=== PATIENT | female | born 1995 | race Caucasian/White ===

== ENCOUNTER 2016-09-14 11:50 | Emergency (ER) | payer BC ==
[~2016-09-14] VITALS: Ht 167.6 cm; Wt 61.3 kg
[~2016-09-14 11:50] MED LIST: IBUP800T23 PO; METH750T2 PO; SERO300T2 PO; VENL75 PO
[2016-09-14 12:04] VITALS: BP 113/69; PULSE 76; RESP 17; TEMP 98.6; O2SAT 98
[2016-09-14 13:07] VITALS: BP 116/68; PULSE 76; RESP 16; O2SAT 99
[2016-09-14] MEDS ORDERED: SERO300T PO (13:10)
[2016-09-14] MEDS ORDERED: PYRI200T4 PO (13:10)
[2016-09-14] MEDS ORDERED: MACR100C2 PO (13:10)
[2016-09-14] MEDS ORDERED: SODIUM CHLOR 0.9% 1000 ML INJ 1,000 ML IV ONE ×2 (13:13→13:15)
[2016-09-14] MEDS ORDERED: SODIUM CHLORIDE 0.9% FLUSH 5 ML FLUSH IVF PRN (13:15)
[2016-09-14] MEDS ORDERED: HYDROmorphone HCL PF 1 MG/ML VIAL IVS ONE (13:15)
[2016-09-14] MEDS ORDERED: ONDANSETRON HCL 4 MG/2 ML VIAL IVP ONE (13:15)
--- NOTE | 2016-09-14 13:21 | PD ---
HPI . Dark urine Chief Complaint: Complaint Time Seen by Provider: 13:09 Travel History International Travel<30 days: No Contact w/Intl Traveler<30days: No Traveled to known affect area: No History of Present Illness HPI Patient presents complaining with dark urine for about 3 days. She was seen at an urgent care center for same and diagnosed with UTI. She was placed on Macrobid and Pyridium. She states that she has been taking this as directed but is getting worse rather than better. She denies dysuria, frequency or urgency. She developed flank pain yesterday. She is nauseous but has had no vomiting. She reports no fever. She does report some suprapubic pain. She denies any previous similar history. [facility] Past Medical History Asthma: Yes Anxiety: Yes Depression: Yes Diminished Hearing: No Influenza Vaccination: No ?: Not LMP: 08/29/16 Past Surgical History Other Surgery: Yes (SINUS) Social History Alcohol Use: No (DENIES) Tobacco Use: Yes (09/10 PPD) Substance Use: Yes (DENIES USE SINCE 2014; HX OF HEROIN AND ALCOHOL ABUSE) Allergies-Medications (Allergen,Severity, Reaction): Coded Allergies: Penicillin (Unverified Allergy, Severe, HIVES, THROAT SWELLING, 09/14/16) Bactrim (Unverified Adverse Reaction, Unknown, N/V, 09/14/16) Reported Meds & Prescriptions Reported Meds & Active Scripts Active Flomax (Tamsulosin HCl) 0.4 Mg Cap 0.4 Mg PO HS Ibuprofen 800 Mg Tab 800 Mg PO Q8H PRN Reported Seroquel (Quetiapine Fumarate) 300 Mg Tab 300 Mg PO HS Pyridium (Phenazopyridine HCl) 200 Mg Tab 200 Mg PO Q8H PRN Macrobid (Nitrofurantoin Monoh/Nitrofur Macro) 100 Mg Cap 100 Mg PO BID Review of Systems Except as stated in HPI: all other systems reviewed are Neg General / Constitutional: No: Fever, Chills HENT: Positive: Headaches Gastrointestinal: Positive: Nausea, Abdominal Pain, No: Vomiting, Diarrhea Genitourinary: Positive: Flank Pain, Other (black urine), No: Urgency, Frequency, Dysuria Musculoskeletal: No: Myalgias, Arthralgias Physical Exam Narrative GENERAL: Healthy-appearing young female in no acute distress. SKIN: Warm and dry. HEAD: Atraumatic. Normocephalic. EYES: Pupils equal and round. ENT: No nasal bleeding or discharge. Mucous membranes pink and moist. NECK: Trachea midline. CARDIOVASCULAR: Regular rate and rhythm. Heart sounds are normal. RESPIRATORY: No accessory muscle use. Lungs are clear with full air movement throughout. GASTROINTESTINAL: Abdomen soft. Mild suprapubic tenderness. Nondistended. Right CVA tenderness. MUSCULOSKELETAL: No obvious deformities. No edema. NEUROLOGICAL: Awake and alert. No obvious cranial nerve deficits. Motor grossly within normal limits. Normal speech. PSYCHIATRIC: Appropriate mood and affect; insight and judgment normal. Data Data Last Documented VS Vital Signs Date Time Temp Pulse Resp B/P Pulse Ox O2 Delivery O2 Flow Rate FiO2 09/14/16 15:42 65 16 104/56 99 Room Air 09/14/16 12:04 98.6 Orders Urinalysis - C+S If Indicated (09/14/16 12:03) Complete Blood Count With Diff (09/14/16 13:13) Comprehensive Metabolic Panel (09/14/16 13:13) Iv Access Insert/Monitor (09/14/16 13:13) Sodium Chloride 0.9% Flush (Ns Flush) (09/14/16 13:15) Sodium Chlor 0.9% 1000 Ml Inj (Ns 1000 M (09/14/16 13:13) Ondansetron Inj (Zofran Inj) (09/14/16 13:15) Hydromorphone Pf Inj (Dilaudid Pf Inj) (09/14/16 13:15) Ed Urine Pregnancytest Poc (09/14/16 13:13) Sodium Chlor 0.9% 1000 Ml Inj (Ns 1000 M (09/14/16 13:15) Ct Abd/Pel W/O Iv Contrast (09/14/16 13:13) Ketorolac Inj (Toradol Inj) (09/14/16 14:15) Urine Culture (09/14/16 12:05) Labs Laboratory Tests Test 09/14/16 09/14/16 09/14/16 12:05 13:35 15:04 Urine Collection Type CLEAN CATCH Urine Color ORANGE Urine Turbidity CLEAR Urine pH 6.0 Urine Specific [place] 1.021 Urine Protein TRACE mg/dL Urine Glucose (UA) 100 mg/dL Urine Ketones NEG mg/dL Urine Occult Blood TRACE Urine Nitrite POS Urine Bilirubin NEG Urine Leukocyte Esterase NEG Urine RBC 20-24 /hpf Urine WBC 0-2 /hpf Urine Squamous Epithelial 0-5 /hpf Cells Microscopic Urinalysis Comment CULTURE INDICATED Urine Collection Time 12:05 White Blood Count 5.0 TH/MM3 Red Blood Count 4.39 MIL/MM3 Hemoglobin 12.6 GM/DL Hematocrit 37.8 % Mean Corpuscular Volume 86.2 FL Mean Corpuscular Hemoglobin 28.7 PG Mean Corpuscular Hemoglobin 33.3 % Concent Red Cell Distribution Width 12.7 % Platelet Count 205 TH/MM3 Mean Platelet Volume 9.1 FL Neutrophils (%) (Auto) 53.3 % Lymphocytes (%) (Auto) 33.1 % Monocytes (%) (Auto) 7.9 % Eosinophils (%) (Auto) 2.3 % Basophils (%) (Auto) 3.4 % Neutrophils # (Auto) 2.7 TH/MM3 Lymphocytes # (Auto) 1.6 TH/MM3 Monocytes # (Auto) 0.4 TH/MM3 Eosinophils # (Auto) 0.1 TH/MM3 Basophils # (Auto) 0.2 TH/MM3 CBC Comment DIFF FINAL Differential Comment Sodium Level 145 MEQ/L Potassium Level 3.6 MEQ/L Chloride Level 112 MEQ/L Carbon Dioxide Level 27.1 MEQ/L Anion Gap 6 MEQ/L Blood Urea Nitrogen 14 MG/DL Creatinine 0.88 MG/DL Estimat Glomerular Filtration 80 ML/MIN Rate Random Glucose 70 MG/DL Calcium Level 8.2 MG/DL Total Bilirubin 0.8 MG/DL Aspartate Amino Transf 22 U/L (AST/SGOT) Alanine Aminotransferase 28 U/L (ALT/SGPT) Alkaline Phosphatase 45 U/L Total Protein 6.7 GM/DL Albumin 3.9 GM/DL [facility] Medical Decision Making Medical Screen Exam Complete: Yes Emergency Medical Condition: Yes Differential Diagnosis Differential diagnosis of flank pain includes but is not limited to kidney stone , pyelonephritis, musculoskeletal pain, PE. We also have to consider something such as liver failure. Narrative Course Patient presents with dark urine which started first followed by flank pain and nausea. She has shown me a picture of the urine and it looks like coffee. 2:47 PM Her UA is positive for occult blood, positive for nitrite. She has 20-24 red cells. She has 0-[address] and chemistries are still pending. 3:[address] shows a stone in the bladder. It is 2.5 mm in diameter. Diagnosis Primary Impression: Hematuria Additional Impression: Kidney stone Patient Instructions: General Instructions, Kidney Stones (ED) Scripts Tamsulosin (Flomax)0.4 Mg Cap0.4 Mg PO HS #10 CAP Ref 0 Prov:Jana Pierson MD 09/14/16 Ibuprofen 800 Mg [id number] Mg PO Q8H PRN (pain) #30 TAB Ref 0 Prov:Jana Pierson MD 09/14/16 Disposition: 01 DISCHARGE HOME Condition: Stable Jana Pierson MD Sep 14, 2016 13:21
[2016-09-14 13:51] LABS: AUTOMATED NEUTROPHIL # 2.7 TH/MM3 (1.8-7.7); BASOPHIL # 0.2 TH/MM3 (0-0.2); BASOPHIL % 3.4 % (0.0-2.0); EOSINOPHIL # 0.1 TH/MM3 (0-0.4); EOSINOPHIL % 2.3 % (0.0-4.0); HEMATOCRIT 37.8 % (35.0-46.0); HEMO FLAGS DIFF FINAL; LYMPH % 33.1 % (9.0-44.0); LYMPHOCYTE # 1.6 TH/MM3 (1.0-4.8); MEAN CELL VOLUME 86.2 FL (80.0-100.0); MEAN CORPUSCULAR HEMOGLOBIN 28.7 PG (27.0-34.0); MEAN CORPUSCULAR HGB CONC 33.3 % (32.0-36.0); MONO % 7.9 % (0.0-8.0); NEUT % 53.3 % (16.0-70.0); PLATELET COUNT 205 TH/MM3 (150-450); RED BLOOD COUNT 4.39 MIL/MM3 (4.00-5.30); RED CELL DISTRIBUTION WIDTH 12.7 % (11.6-17.2)
[2016-09-14] MEDS ORDERED: KETOROLAC TROMETHAMINE 30 MG/ML (IVP) VIAL IV PUSH ONE (14:15)
[2016-09-14 14:35] LABS: BLOOD, URINE TRACE (NEG); GLUCOSE,URINE 100 mg/dL (NEG); KETONE, URINE NEG (NEG); NITRITE,URINE POS (NEG)
[2016-09-14 14:42] LABS: METHOD OF COLLECTION CLEAN CATCH; SQUAMOUS EPITHELIAL CELL URINE 0-5 /hpf (0-5); URINE COLOR ORANGE (YELLW/STRAW); WBC, URINE 0-2 /hpf (0-5)
[2016-09-14 14:43] LABS: COMMENT (UR) CULTURE INDICATED; CULTURE IF INDICATED CULTURE INDICATED
--- NOTE | 2016-09-14 15:07 | RADHPO ---
EXAM DATE/TIME: 09/14/2016 14:41 [facility] COMPARISON: No previous studies available for comparison. INDICATIONS : Right flank pain. ORAL CONTRAST: No oral contrast ingested. RADIATION DOSE: 7.46 CTDIvol (mGy) MEDICAL HISTORY : Asthma. SURGICAL HISTORY : None. ENCOUNTER: Initial ACUITY: 2 days PAIN SCALE: 6/10 LOCATION: Right flank TECHNIQUE: Volumetric scanning of the abdomen and pelvis was performed. Using automated exposure control and ad justment of the mA and/or kV according to patient size, radiation dose was kept as low as reasonably achievable to obtain optimal diagnostic quality images. FINDINGS: LOWER LUNGS: The visualized lower lungs are clear. LIVER: Homogeneous density without lesion. There is no dilation of the biliary tree. No calcified gallston es. SPLEEN: Normal size without lesion. PANCREAS: Within normal limits. KIDNEYS: Normal in size and shape. There is no mass, stone, or hydronephrosis. ADRENAL GLANDS: Within normal limits. VASCULAR: There is no aortic aneurysm. BOWEL/MESENTERY: Scattered foci of radiodense material within pelvic bowel structures likely reflects ingested medicat ion. There is no evidence of abnormal dilatation, wall thickening or focal inflammatory change. ABDOMINAL WALL: Within normal limits. RETROPERITONEUM: There is no lymphadenopathy. BLADDER: There is a 2.5 mm calcific density in the region of the right lateral base/posterior wall which is li muna a recently passed stone. REPRODUCTIVE: Within normal limits. INGUINAL: There is no lymphadenopathy or hernia. MUSCULOSKELETAL: Within normal limits for patient age. CONCLUSION: 2.5 mm calcification in the bladder likely recently passed stone. Kris Matthews MD on September 14, 2016 at 14:57 Board Certified Radiologist. This report was verified electronically.
[2016-09-14 15:30] LABS: CHLORIDE 112 MEQ/L (98-107); POTASSIUM 3.6 MEQ/L (3.5-5.1); SODIUM (NA) 145 MEQ/L (136-145)
[2016-09-14] MEDS ORDERED: IBUP800T23 PO (15:33)
[2016-09-14] MEDS ORDERED: TAMS5CAP PO (15:33)
[2016-09-14 15:36] LABS: ANION GAP 6 MEQ/L (5-15); BICARBONATE 27.1 MEQ/L (21.0-32.0); BLOOD UREA NITROGEN 14 MG/DL (7-18)
[2016-09-14 15:39] LABS: ALT (GPT) 28 U/L (10-53); AST (GOT) 22 U/L (15-37); GLOMERULAR FILTRATION RATE 80 ML/MIN (>89)
[2016-09-14 15:40] LABS: TOTAL BILIRUBIN ADULT 0.8 MG/DL (0.2-1.0)
[2016-09-14 15:42] VITALS: BP 104/56; PULSE 65; RESP 16; O2SAT 99
[2016-09-14 15:42] LABS: ALKALINE PHOSPHATASE 45 U/L (45-117)
== END 2016-09-14 17:46 | disposition home or self-care (01) ==
LOC: PHED 11:50
DX: R31.9 Hematuria, unspecified (principal); N20.0 Calculus of kidney; R10.9 Unspecified abdominal pain; R11.0 Nausea; J45.909 Unspecified asthma, uncomplicated; F17.210 Nicotine dependence, cigarettes, uncomplicated
CPT/HCPCS: 74176; 80053; 81001; 84703; 85025; 87086; 96361; 96374; 96375; 99284; J1885; J2405; J7030

== ENCOUNTER 2016-10-02 15:41 | Emergency (ER) | payer OTHER, BC ==
[~2016-10-02] VITALS: Ht 167.6 cm; Wt 61.8 kg
[~2016-10-02 15:41] MED LIST changes: +MACR100C2 PO; -METH750T2 PO; +PYRI200T4 PO; +SERO300T PO; -SERO300T2 PO; +TAMS5CAP PO; -VENL75 PO
[2016-10-02 16:03] VITALS: BP_SYST 106; BP_SYST 114; BP_DIAS 60; BP_DIAS 69; PULSE 73; PULSE 74; RESP 16; TEMP 98.4; TEMP 98.9; O2SAT 98
[2016-10-02 16:09] VITALS: BP_SYST 106; BP_SYST 114; BP_DIAS 60; BP_DIAS 69; PULSE 73; PULSE 74; RESP 16; O2SAT 98
[2016-10-02] MEDS ORDERED: CELE40TA PO (16:12)
[2016-10-02] MEDS ORDERED: TOPA25TA8 PO (16:12)
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
[2016-10-02] MEDS ORDERED: KETOROLAC TROMETHAMINE 60 MG/2 ML (IM) VIAL IM ONE ×2 (16:15→16:30)
[2016-10-02] MEDS ORDERED: IBUP800T23 PO (16:19)
[2016-10-02] MEDS ORDERED: SERO300T PO (16:19)
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
[2016-10-02] MEDS ORDERED: NAPR500T PO (17:11)
[2016-10-02] MEDS ORDERED: ROBA500T PO (17:11)
[2016-10-02] MEDS ORDERED: IBUPROFEN 800 MG TAB PO ONE (17:15)
== END 2016-10-02 17:19 | disposition home or self-care (01) ==
LOC: NEPB 15:41
DX: M25.561 Pain in right knee (principal); F17.210 Nicotine dependence, cigarettes, uncomplicated; Z88.0 Allergy status to penicillin
CPT/HCPCS: 73552

== ENCOUNTER 2017-02-16 17:06 | Emergency (ER) | payer BC ==
[~2017-02-16] VITALS: Ht 167.6 cm; Wt 62.0 kg
[~2017-02-16 17:06] MED LIST changes: -MACR100C2 PO; +NAPR500T PO; -PYRI200T4 PO; +ROBA500T PO; -TAMS5CAP PO
[2017-02-16 17:08] VITALS: BP 108/78; PULSE 98; RESP 16; TEMP 98.1; O2SAT 97
[2017-02-16] MEDS ORDERED: SODIUM CHLOR 0.9% 1000 ML INJ 1,000 ML IV SCH (17:16)
--- NOTE | 2017-02-16 17:19 | PD ---
HPI Chief Complaint: Complaint Time Seen by Provider: 17:11 Travel History International Travel<30 days: No Contact w/Intl Traveler<30days: No Traveled to known affect area: No History of Present Illness HPI 21-year-old female here for evaluation of left flank pain, hematuria, and nausea and symptoms of been going on for last 3 days and been intermittent. Pain is described as sharp, radiates to her left lower abdomen. History of kidney stone earlier this year on the right side, and the patient reports that the pain feels very similar. No fevers or chills. No history of abdominal surgeries. No vaginal bleeding or discharge. LMP was 02/07/17. PFSH Past Medical History Asthma: Yes Anxiety: Yes Depression: Yes Diminished Hearing: No ?: Not Past Surgical History Other Surgery: Yes (SINUS) Social History Alcohol Use: No Tobacco Use: Yes Substance Use: No Allergies-Medications (Allergen,Severity, Reaction): Coded Allergies: Penicillin (Unverified Allergy, Severe, HIVES, THROAT SWELLING, 02/16/17) Bactrim (Unverified Adverse Reaction, Unknown, N/V, 02/16/17) Reported Meds & Prescriptions Reported Meds & Active Scripts Active Zofran Odt (Ondansetron Odt) 4 Mg Tab 4 Mg SL Q8HR PRN Macrobid (Nitrofurantoin Monoh/Nitrofur Macro) 100 Mg Cap 100 Mg PO BID 5 Days Reported Seroquel (Quetiapine Fumarate) 300 Mg Tab 300 Mg PO HS Review of Systems Except as stated in HPI: all other systems reviewed are Neg Physical Exam Narrative GENERAL: Well-developed, well-nourished, comfortable, no acute distress. SKIN: Focused skin assessment warm/dry. No rash. HEAD: Atraumatic. Normocephalic. EYES: Pupils equal and round. No scleral icterus. No injection or drainage. ENT: Mucous membranes pink and moist. CARDIOVASCULAR: Regular rate and rhythm. RESPIRATORY: No accessory muscle use. Clear to auscultation. Breath sounds equal bilaterally. GASTROINTESTINAL: Abdomen soft, non-tender, nondistended. MUSCULOSKELETAL: No obvious deformities. No clubbing. No cyanosis. No edema. No midline vertebral step-off or tenderness. No right CVA tenderness. Mild left CVA tenderness. NEUROLOGICAL: Awake and alert. No obvious cranial nerve deficits. Motor grossly within normal limits. Normal speech. PSYCHIATRIC: Appropriate mood and affect; insight and judgment normal. Data Data Last Documented VS Vital Signs Date Time Temp Pulse Resp B/P Pulse Ox O2 Delivery O2 Flow Rate FiO2 02/16/17 17:48 98 Room Air 02/16/17 17:08 98.1 98 16 108/78 Orders Urinalysis - C+S If Indicated (02/16/17 17:08) Ed Urine Pregnancytest Poc (02/16/17 17:08) Complete Blood Count With Diff (02/16/17 17:16) Comprehensive Metabolic Panel (02/16/17 17:16) Prothrombin Time / Inr (Pt) (02/16/17 17:16) Act Partial Throm Time (Ptt) (02/16/17 17:16) Ct Abd/Pel W/O Iv Contrast (02/16/17 17:16) Iv Access Insert/Monitor (02/16/17 17:16) Ecg Monitoring (02/16/17 17:16) Oximetry (02/16/17 17:16) Ondansetron Inj (Zofran Inj) (02/16/17 17:30) Sodium Chlor 0.9% 1000 Ml Inj (Ns 1000 M (02/16/17 17:16) Sodium Chloride 0.9% Flush (Ns Flush) (02/16/17 17:30) Ketorolac Inj (Toradol Inj) (02/16/17 17:30) Urine Culture (02/16/17 17:28) Ceftriaxone Inj (Rocephin Inj) (02/16/17 18:15) Labs Laboratory Tests Test 02/16/17 02/16/17 17:28 17:32 Urine Collection Type CLEAN CATCH Urine Color YELLOW Urine Turbidity SLIGHT Urine pH 6.0 Urine Specific [place] 1.021 Urine Protein NEG mg/dL Urine Glucose (UA) NEG mg/dL Urine Ketones NEG mg/dL Urine Occult Blood LARGE Urine Nitrite NEG Urine Bilirubin NEG Urine Leukocyte Esterase NEG Urine RBC 15-19 /hpf Urine Squamous Epithelial 6-8 /hpf Cells Urine Amorphous Sediment FEW Urine Bacteria MOD /hpf Microscopic Urinalysis Comment CULTURE INDICATED Urine Collection Time 1728 White Blood Count 7.9 TH/MM3 Red Blood Count 4.22 MIL/MM3 Hemoglobin 12.3 GM/DL Hematocrit 36.0 % Mean Corpuscular Volume 85.3 FL Mean Corpuscular Hemoglobin 29.2 PG Mean Corpuscular Hemoglobin 34.2 % Concent Red Cell Distribution Width 12.2 % Platelet Count 203 TH/MM3 Mean Platelet Volume 8.1 FL Neutrophils (%) (Auto) 74.1 % Lymphocytes (%) (Auto) 16.2 % Monocytes (%) (Auto) 8.9 % Eosinophils (%) (Auto) 0.3 % Basophils (%) (Auto) 0.5 % Neutrophils # (Auto) 5.9 TH/MM3 Lymphocytes # (Auto) 1.3 TH/MM3 Monocytes # (Auto) 0.7 TH/MM3 Eosinophils # (Auto) 0.0 TH/MM3 Basophils # (Auto) 0.0 TH/MM3 CBC Comment DIFF FINAL Differential Comment Prothrombin Time 10.4 SEC Prothromb Time International 0.9 RATIO Ratio Activated Partial 25.3 SEC Thromboplast Time Sodium Level 143 MEQ/L Potassium Level 3.5 MEQ/L Chloride Level 110 MEQ/L Carbon Dioxide Level 25.9 MEQ/L Anion Gap 7 MEQ/L Blood Urea Nitrogen 11 MG/DL Creatinine 0.96 MG/DL Estimat Glomerular Filtration 72 ML/MIN Rate Random Glucose 84 MG/DL Calcium Level 8.4 MG/DL Total Bilirubin 0.3 MG/DL Aspartate Amino Transf 25 U/L (AST/SGOT) Alanine Aminotransferase 29 U/L (ALT/SGPT) Alkaline Phosphatase 49 U/L Total Protein 7.0 GM/DL Albumin 3.9 GM/DL [facility] Medical Decision Making Medical Screen Exam Complete: Yes Emergency Medical Condition: Yes Medical Record Reviewed: Yes Differential Diagnosis Nephrolithiasis, ureterolithiasis, UTI, pyelonephritis, colitis, Narrative Course Initial vital signs show heart rate 90, blood pressure 108/78, pulse ox 97% on room air, oral temp of 98.1F. CBC is unremarkable. CMP is unremarkable. UA shows large occult blood, 15-19 rbc's, 8 squamous epithelial cells, moderate bacteria, culture indicated. Urine is negative. CT abdomen pelvis: CONCLUSION: 1. No obstructive uropathy. No renal calculi. 2. Mild constipation. Patient was made aware of all findings. She is resting comfortably and is feeling improved after receiving Toradol and Zofran. She will be given a dose of IV Rocephin here and discharged home with a prescription for Macrobid for her UTI. Regarding her hematuria as instructed her to follow-up with her urologist whom she followed up with earlier this year for her kidney stones. She is stable for discharge home with outpatient follow-up. She was informed on when to return to the emergency department. She verbalizes understanding and agreement with plan. IV was pulled by the nurse prior to administering Rocephin. Patient will be given a dose of Macrobid here instead and will be given a prescription for this medication. Diagnosis Primary Impression: UTI (urinary tract infection) Qualified Code: N39.0 - Urinary tract infection with hematuria, site unspecified Additional Impression: Hematuria Referrals: Primary Care Physician 3 days Urologist 3 days Additional Instructions: Follow-up with your primary care physician this week. Follow-up with your neurologist this week. Return to the emergency department for worsening symptoms or any other concerns. Scripts Ondansetron Odt (Zofran Odt)4 Mg Tab4 Mg SL Q8HR PRN (Nausea/Vomiting) #15 TAB Ref 0 Prov:Kyle Acosta MD 02/16/17 Nitrofurantoin Monohydrate Macrocrystals (Macrobid)100 Mg [id number] Mg PO BID 5 Days Ref 0 Prov:Kyle Acosta MD 02/16/17 Disposition: 01 DISCHARGE HOME Condition: Stable Kyle Acosta MD Feb 16, 2017 17:19
[2017-02-16] MEDS ORDERED: SODIUM CHLORIDE 0.9% FLUSH 10 ML FLUSH IV FLUSH PRN (17:30)
[2017-02-16] MEDS ORDERED: KETOROLAC TROMETHAMINE 30 MG/ML (IVP) VIAL IV PUSH ONE (17:30)
[2017-02-16] MEDS ORDERED: ONDANSETRON HCL 4 MG/2 ML VIAL IVP ONE (17:30)
[2017-02-16 17:38] LABS: AUTOMATED NEUTROPHIL # 5.9 TH/MM3 (1.8-7.7); BASOPHIL % 0.5 % (0.0-2.0); EOSINOPHIL % 0.3 % (0.0-4.0); HEMO FLAGS DIFF FINAL; LYMPH % 16.2 % (9.0-44.0); LYMPHOCYTE # 1.3 TH/MM3 (1.0-4.8); MEAN CELL VOLUME 85.3 FL (80.0-100.0); MEAN CORPUSCULAR HEMOGLOBIN 29.2 PG (27.0-34.0); MEAN CORPUSCULAR HGB CONC 34.2 % (32.0-36.0); MONO % 8.9 % (0.0-8.0); NEUT % 74.1 % (16.0-70.0); PLATELET COUNT 203 TH/MM3 (150-450); RED BLOOD COUNT 4.22 MIL/MM3 (4.00-5.30); RED CELL DISTRIBUTION WIDTH 12.2 % (11.6-17.2); WHITE BLOOD COUNT 7.9 TH/MM3 (4.0-11.0)
[2017-02-16 17:39] LABS: BLOOD, URINE LARGE (NEG); GLUCOSE,URINE NEG (NEG); KETONE, URINE NEG (NEG); NITRITE,URINE NEG (NEG)
[2017-02-16 17:42] LABS: METHOD OF COLLECTION CLEAN CATCH
[2017-02-16 17:43] LABS: URINE COLOR YELLOW (YELLW/STRAW)
[2017-02-16 17:44] LABS: CHLORIDE 110 MEQ/L (98-107); POTASSIUM 3.5 MEQ/L (3.5-5.1); SODIUM (NA) 143 MEQ/L (136-145)
[2017-02-16 17:47] LABS: BACTERIA, URINE MOD /hpf; COMMENT (UR) CULTURE INDICATED; CULTURE IF INDICATED CULTURE INDICATED; RBC, URINE 15-19 /hpf (0-3)
[2017-02-16 17:48] VITALS: O2SAT 98
[2017-02-16 17:48] LABS: ANION GAP 7 MEQ/L (5-15); BICARBONATE 25.9 MEQ/L (21.0-32.0); BLOOD UREA NITROGEN 11 MG/DL (7-18)
[2017-02-16 17:51] LABS: ALT (GPT) 29 U/L (10-53); APTT (PATIENT) 25.3 SEC (24.3-30.1); AST (GOT) 25 U/L (15-37); GLOMERULAR FILTRATION RATE 72 ML/MIN (>89); INTERNATIONAL NORMALIZED RATIO 0.9 RATIO; PROTHROMBIN TIME - PATIENT 10.4 SEC (9.8-11.6)
[2017-02-16 17:53] LABS: TOTAL BILIRUBIN ADULT 0.3 MG/DL (0.2-1.0)
[2017-02-16 17:54] LABS: ALKALINE PHOSPHATASE 49 U/L (45-117)
--- NOTE | 2017-02-16 17:58 | RADHPO ---
EXAM DATE/TIME: 02/16/2017 17:27 [facility] COMPARISON: CT ABDOMEN & PELVIS W/O CONTRAST, September 14, 2016, 14:41. INDICATIONS : History of stones this past year, new blood in urine with pain left side. ORAL CONTRAST: No oral contrast ingested. RADIATION DOSE: 7.42 CTDIvol (mGy) MEDICAL HISTORY : Renal calculi. SURGICAL HISTORY : None. ENCOUNTER: Initial ACUITY: 1 day PAIN SCALE: 7/10 LOCATION: Left abdomen. TECHNIQUE: Volumetric scanning of the abdomen and pelvis was performed. Using automated exposure control and ad justment of the mA and/or kV according to patient size, radiation dose was kept as low as reasonably achievable to obtain optimal diagnostic quality images. FINDINGS: Lung bases are clear. No acute findings in the liver, spleen, adrenals, kidneys or pancreas. No calci fied gallstones or biliary ductal dilatation. There is mild constipation. Appendix has normal-caliber without inflammatory changes but with questionable contrast or appendicolith present. No hydronephrosis. No ureteral or bladder calculi identified. CONCLUSION: 1. No obstructive uropathy. No renal calculi. 2. Mild constipation. Walter Buck MD on February 16, 2017 at 17:52 Board Certified Radiologist. This report was verified electronically.
[2017-02-16] MEDS ORDERED: MACR100C2 PO (18:04)
[2017-02-16] MEDS ORDERED: ZOFR4TAB3 SL (18:04)
[2017-02-16] MEDS ORDERED: cefTRIAXone INJ 1,000 MG in SODIUM CHLORIDE 0.9% INJ 100 ML IV ONE (18:15)
[2017-02-16 18:29] VITALS: BP 111/62; PULSE 72; RESP 18; O2SAT 98
[2017-02-16] MEDS ORDERED: NITROFURANTOIN MONOHYD MACROCR 100 MG CAP PO ONE (18:30)
== END 2017-02-16 18:39 | disposition home or self-care (01) ==
LOC: PHED 17:06
DX: N39.0 Urinary tract infection, site not specified (principal); R31.9 Hematuria, unspecified; K59.00 Constipation, unspecified; R10.32 Left lower quadrant pain; Z72.0 Tobacco use; Z87.442 Personal history of urinary calculi; Z87.09 Personal history of other diseases of the respiratory system; Z86.59 Personal history of other mental and behavioral disorders
CPT/HCPCS: 74176; 80053; 81001; 84703; 85025; 85610; 85730; 87086; 96361; 96374; 96375; 99285; J1885; J2405; J7030

== ENCOUNTER 2017-04-20 15:55 | Emergency (ER) | payer BC ==
[~2017-04-20] VITALS: Ht 167.6 cm; Wt 62.3 kg
[~2017-04-20 15:55] MED LIST changes: -IBUP800T23 PO; +MACR100C2 PO; -NAPR500T PO; -ROBA500T PO; +ZOFR4TAB3 SL
[2017-04-20 15:59] VITALS: BP 112/65; PULSE 78; RESP 18; TEMP 98.4; O2SAT 98
--- NOTE | 2017-04-20 16:41 | PD ---
HPI Chief Complaint: Oral / Dental Pain or Problem Time Seen by Provider: 16:15 Travel History International Travel<30 days: No Contact w/Intl Traveler<30days: No Traveled to known affect area: No History of Present Illness HPI 22-year-old female presents to the emergency room for evaluation of left upper dental pain and swelling for the past 2 days. Swelling is worst in the morning. Patient has an appointment with the dental surgeon in a few weeks to have a dental implant in the area that is hurting. States her dentist put her on clindamycin when she started 5 days ago. They also gave her prescription for 800 mg ibuprofen which she states improves her symptoms. Her prescription is 1 month long. She denies fever, chills, nausea, vomiting, or drainage from the area. No chronic medical conditions or daily medications. PFSH Past Medical History Asthma: Yes Anxiety: Yes Depression: Yes Diminished Hearing: No Kidney Stones: Yes Renal Failure: Yes (states acute episode with kidney stones) Influenza Vaccination: No ?: Not LMP: Past Surgical History Other Surgery: Yes (SINUS) Social History Alcohol Use: No Tobacco Use: Yes Substance Use: No Allergies-Medications (Allergen,Severity, Reaction): Coded Allergies: Penicillin (Unverified Allergy, Severe, HIVES, THROAT SWELLING, 04/20/17) Bactrim (Unverified Adverse Reaction, Unknown, N/V, 04/20/17) Reported Meds & Prescriptions Reported Meds & Active Scripts Active Reported Seroquel (Quetiapine Fumarate) 300 Mg Tab 300 Mg PO HS Review of Systems Except as stated in HPI: all other systems reviewed are Neg Physical Exam Narrative GENERAL: Well-nourished, well-developed female in no acute distress. Afebrile. Ambulatory. SKIN: Focused skin assessment warm/dry. HEAD: Normocephalic. EYES: No scleral icterus. No injection or drainage. DENTAL: Mild decay throughout. No malocclusion. No erythema, edema, induration , or drainage. No tenderness to palpation to tooth #16. NECK: Supple, trachea midline. No JVD or lymphadenopathy. CARDIOVASCULAR: Regular rate and rhythm without murmurs, gallops, or rubs. RESPIRATORY: Breath sounds equal bilaterally. No accessory muscle use. Data Data Last Documented VS Vital Signs Date Time Temp Pulse Resp B/P Pulse Ox O2 Delivery O2 Flow Rate FiO2 8/12/17 15:59 98.4 78 18 112/65 98 MDM Medical Decision Making Medical Screen Exam Complete: Yes Emergency Medical Condition: Yes Medical Record Reviewed: Yes Differential Diagnosis Dentalgia, dental decay, gingivitis Narrative Course 22-year-old female presents to the emergency room for evaluation of dental pain and swelling to the past 2 days. Patient is under the care of an oral surgeon and has an appointment at the end of the month for dental implant. States she has been on clindamycin for 5 days. Physical exam is unremarkable. No evidence of acute infection. Patient was reassured and told to follow up with her dental surgeon as planned or return for worsening symptoms. She understands and agrees to plan. Diagnosis Primary Impression: Dentalgia Referrals: Dentist Patient Instructions: General Instructions, Toothache (ED) Additional Instructions: Rest and drink plenty of fluids. Ibuprofen as directed, as needed for pain. Follow-up with a dentist, as planned. Return to the emergency room for worsening symptoms. Disposition: 01 DISCHARGE HOME Condition: Stable Klarissa Doran Apr 20, 2017 16:41
== END 2017-04-20 16:55 | disposition home or self-care (01) ==
LOC: PHEFT 15:55
DX: K08.89 Other specified disorders of teeth and supporting structures (principal); Z72.0 Tobacco use
CPT/HCPCS: 99282

== ENCOUNTER 2017-05-27 14:43 | Emergency (ER) | payer BC ==
[~2017-05-27] VITALS: Ht 167.6 cm; Wt 60.0 kg
[~2017-05-27 14:43] MED LIST changes: -MACR100C2 PO; -ZOFR4TAB3 SL
[2017-05-27] MEDS ORDERED: GADODIAMIDE PF 287 MG/ML 5 ML VIAL (for RAD MRI) IVCONTRAST ONE (14:44)
[2017-05-27 14:55] VITALS: BP 126/74; PULSE 76; RESP 16; TEMP 98.1; O2SAT 100
--- NOTE | 2017-05-27 16:32 | PD ---
HPI Chief Complaint: Back/ Neck Pain or Injury Time Seen by Provider: 15:46 Travel History International Travel<30 days: No Contact w/Intl Traveler<30days: No Traveled to known affect area: No History of Present Illness HPI 22-year-old female presents to the emergency room for evaluation of low back pain radiating down the right lower extremity for the past week. Patient denies any trauma or injury. States she woke up with pain. It is worse with certain range of motion. She has been taking ibuprofen which moderately relieves her symptoms. She works out daily but has not had a change in her routine. She denies fever, chills, night sweats, saddle anesthesia, or loss of bladder control. She has occasional paresthesias down the right lower extremity. Patient has remote history of IV drug use, last used 2.5 years ago. She is requesting no narcotics. PFSH Past Medical History Asthma: Yes Anxiety: Yes Depression: Yes Diminished Hearing: No Kidney Stones: Yes Respiratory: Yes (asthma) Renal Failure: Yes (states acute episode with kidney stones) Tetanus Vaccination: < 5 Years Influenza Vaccination: Yes ?: Not LMP: 05/08/17 Past Surgical History Oral Surgery: Yes (dental work, sinus surgery) Other Surgery: Yes (SINUS) Social History Alcohol Use: No Tobacco Use: Yes (1/2 ppd of cigs) Substance Use: No Allergies-Medications (Allergen,Severity, Reaction): Coded Allergies: penicillin G (Unverified Allergy, Severe, HIVES, THROAT SWELLING, 05/27/17) sulfamethoxazole (Unverified Adverse Reaction, Unknown, N/V, 05/27/17) trimethoprim (Unverified Adverse Reaction, Unknown, N/V, 05/27/17) Reported Meds & Prescriptions Reported Meds & Active Scripts Active Reported Seroquel (Quetiapine Fumarate) 300 Mg Tab 200 Mg PO HS Review of Systems Except as stated in HPI: all other systems reviewed are Neg Physical Exam Narrative GENERAL: Well-nourished, well-developed female in no acute distress. Afebrile. Ambulatory. Moving easily on the bed. SKIN: Focused skin assessment warm/dry. HEAD: Normocephalic. EYES: No scleral icterus. No injection or drainage. NECK: Supple, trachea midline. No JVD or lymphadenopathy. CARDIOVASCULAR: Regular rate and rhythm without murmurs, gallops, or rubs. RESPIRATORY: Breath sounds equal bilaterally. No accessory muscle use. BACK: Mild midline tenderness of the lumbar spine. No step-off or obvious deformity. No CVA tenderness. 2+ patellar and Achilles reflexes are equal bilaterally. Data Data Last Documented VS Vital Signs Date Time Temp Pulse Resp B/P (MAP) Pulse Ox O2 Delivery O2 Flow Rate FiO2 05/27/17 15:00 16 05/27/17 14:55 98.1 76 126/74 (91) [address] Lumb Spine W/O Contrast (05/27/17 ) Complete Blood Count With Diff (05/27/17 16:44) Comprehensive Metabolic Panel (05/27/17 16:44) Iv Access Insert/Monitor (05/27/17 16:44) Sodium Chloride 0.9% Flush (Ns Flush) (05/27/17 16:45) Westergren Sedimentation Rate (05/27/17 16:44) Mri L Spine W&W/O Contrast (05/27/17 ) Gadodiamide Pf Inj (Omniscan Pf Inj) (05/27/17 14:44) Labs Laboratory Tests Test 05/27/17 17:05 White Blood Count 8.9 TH/MM3 Red Blood Count 4.46 MIL/MM3 Hemoglobin 13.0 GM/DL Hematocrit 38.4 % Mean Corpuscular Volume 86.2 FL Mean Corpuscular Hemoglobin 29.1 PG Mean Corpuscular Hemoglobin Concent 33.8 % Red Cell Distribution Width 13.1 % Platelet Count 324 TH/MM3 Mean Platelet Volume 7.7 FL Neutrophils (%) (Auto) 69.8 % Lymphocytes (%) (Auto) 22.4 % Monocytes (%) (Auto) 7.0 % Eosinophils (%) (Auto) 0.3 % Basophils (%) (Auto) 0.5 % Neutrophils # (Auto) 6.3 TH/MM3 Lymphocytes # (Auto) 2.0 TH/MM3 Monocytes # (Auto) 0.6 TH/MM3 Eosinophils # (Auto) 0.0 TH/MM3 Basophils # (Auto) 0.0 TH/MM3 CBC Comment DIFF FINAL Differential Comment Erythrocyte Sedimentation Rate 6 mm/hr Blood Urea Nitrogen 10 MG/DL Creatinine 0.87 MG/DL Random Glucose 88 MG/DL Total Protein 7.6 GM/DL Albumin 4.0 GM/DL Calcium Level 9.0 MG/DL Alkaline Phosphatase 60 U/L Aspartate Amino Transf (AST/SGOT) 25 U/L Alanine Aminotransferase (ALT/SGPT) 38 U/L Total Bilirubin 0.6 MG/DL Sodium Level 140 MEQ/L Potassium Level 3.8 MEQ/L Chloride Level 106 MEQ/L Carbon Dioxide Level 27.1 MEQ/L Anion Gap 7 MEQ/L Estimat Glomerular Filtration Rate 80 ML/MIN MDM Medical Decision Making Medical Screen Exam Complete: Yes Emergency Medical Condition: Yes Medical Record Reviewed: Yes Differential Diagnosis Low back pain, radiculopathy, fracture Narrative Course 22-year-old female presents to the emergency room for evaluation of acute on chronic low back pain for the past one week. She has history of slipped discs in her back. Patient denies trauma or injury. She has associated right lower extremity paresthesias. She has history of IV drug use but has been clean for 2.5 years. No associated fevers. Pain improves with ibuprofen. Patient is afebrile and well-appearing in the emergency room. Resting comfortably and moving easily in bed. There is mild midline tenderness of the lumbar spine. No step-off or obvious deformity. CT shows bulging disc on the right which could explain radiculopathy. Given patient's history of IV drug use and no trauma or injury to explain her pain, MRI was ordered to evaluate for possible abscess. CBC and BMP are unremarkable. ESR is within normal limits. MRI with and without contrast shows mild disc bulge at L4-L5. Bulging disc could explain patient's radiculopathy. Patient discharged with prescriptions for ibuprofen and Robaxin and told to follow up with a primary care physician or return for worsening symptoms. She understands and agrees to plan. Diagnosis Primary Impression: Bulging lumbar disc Referrals: Primary Care Physician Additional Instructions: Rest and drink plenty of fluids. Take Robaxin as directed, as needed for pain. Take ibuprofen with food as directed, as needed for pain. Apply ice to the affected area for 20 minutes at a time, as needed for pain and swelling. Follow-up with a primary care physician. Return to the emergency room for worsening symptoms. Med/Other Pt SpecificInfo: Prescription(s) given Disposition: 01 DISCHARGE HOME Condition: Stable Klarissa Doran May 27, 2017 16:32
--- NOTE | 2017-05-27 16:41 | RADRPT ---
EXAM DATE/TIME: 05/27/2017 16:16 [facility] COMPARISON: No previous studies available for comparison. INDICATIONS : Bilateral lower back pain radiating down right leg. RADIATION DOSE: 15.04 CTDIvol (mGy) MEDICAL HISTORY : None SURGICAL HISTORY : None. ENCOUNTER: Initial ACUITY: 1 week PAIN SCALE: 5/10 LOCATION: Bilateral spine TECHNIQUE: Volumetric scanning of the lumbar spine was performed. Multiplanar reconstructions in the sagittal, coronal and oblique axial planes were performed. Using automated exposure control and adjustment of the mA and/or kV according to patient size, radiation dose was kept as low as reasonably achievable t o obtain optimal diagnostic quality images. DICOM format image data is available electronically for review and comparison. FINDINGS: VERTEBRAE: Normal vertebral body height. ALIGNMENT: No evidence of subluxation. T12-L1: The thecal sac has a normal diameter. No evidence of disc bulge or protrusion. The neural foramina are patent bilaterally. L1-L2: The thecal sac has a normal diameter. No evidence of disc bulge or protrusion. The neural foramina are patent bilaterally. L2-L3: The thecal sac has a normal diameter. No evidence of disc bulge or protrusion. The neural foramina are patent bilaterally. L3-L4: The thecal sac has a normal diameter. No evidence of disc bulge or protrusion. The neural foramina are patent bilaterally. L4-L5: There is mild disc bulging L4-L5 eccentric to the right causing some flattening of the thecal space w ithout significant spinal stenosis. L5-S1: Very minimal bulging present. Neural foramina. Facets unremarkable. CONCLUSION: Mild disc bulging L4-L5 as described above. MRI is suggested. Vincent Dozier MD FACR on May 27, 2017 at 16:36 Board Certified Radiologist. This report was verified electronically.
[2017-05-27] MEDS ORDERED: SODIUM CHLORIDE 0.9% FLUSH 10 ML FLUSH IVF PRN (16:45)
[2017-05-27 17:11] LABS: AUTOMATED NEUTROPHIL # 6.3 TH/MM3 (1.8-7.7); BASOPHIL % 0.5 % (0.0-2.0); EOSINOPHIL % 0.3 % (0.0-4.0); HEMATOCRIT 38.4 % (35.0-46.0); HEMO FLAGS DIFF FINAL; LYMPH % 22.4 % (9.0-44.0); MEAN CELL VOLUME 86.2 FL (80.0-100.0); MEAN CORPUSCULAR HEMOGLOBIN 29.1 PG (27.0-34.0); MEAN CORPUSCULAR HGB CONC 33.8 % (32.0-36.0); NEUT % 69.8 % (16.0-70.0); PLATELET COUNT 324 TH/MM3 (150-450); RED BLOOD COUNT 4.46 MIL/MM3 (4.00-5.30); RED CELL DISTRIBUTION WIDTH 13.1 % (11.6-17.2); WHITE BLOOD COUNT 8.9 TH/MM3 (4.0-11.0)
[2017-05-27 17:18] LABS: CHLORIDE 106 MEQ/L (98-107); POTASSIUM 3.8 MEQ/L (3.5-5.1); SODIUM (NA) 140 MEQ/L (136-145)
[2017-05-27 17:22] LABS: ANION GAP 7 MEQ/L (5-15); BICARBONATE 27.1 MEQ/L (21.0-32.0); BLOOD UREA NITROGEN 10 MG/DL (7-18)
[2017-05-27 17:25] LABS: ALT (GPT) 38 U/L (10-53); AST (GOT) 25 U/L (15-37); GLOMERULAR FILTRATION RATE 80 ML/MIN (>89)
[2017-05-27 17:26] LABS: TOTAL BILIRUBIN ADULT 0.6 MG/DL (0.2-1.0)
[2017-05-27 17:28] LABS: ALKALINE PHOSPHATASE 60 U/L (45-117)
--- NOTE | 2017-05-27 18:24 | RADRPT ---
EXAM DATE/TIME: 05/27/2017 17:33 [facility] COMPARISON: CT LUMBAR SPINE W/O CONTRAST, May 27, 2017, 16:16. INDICATIONS : Abscess. Right leg numbness and pain. CONTRAST: 12 cc Omniscan (gadodiamide) IV MEDICAL HISTORY : Renal calculi. SURGICAL HISTORY : Sinus sx. ENCOUNTER: Initial ACUITY: 1 week PAIN SCORE: 4/10 LOCATION: Right lower back region. TECHNIQUE: Multiplanar multisequence MRI of the lumbar spine was performed with and without contrast. FINDINGS: The most caudal appearing lumbar vertebra is numbered as L5. VERTEBRAE: Homogeneous signal. Normal alignment. CONUS: Normal level and configuration. POST CONTRAST: No abnormal areas of contrast enhancement are seen. T12-L1: The thecal sac has a normal diameter. No evidence of disc bulge or protrusion. The neural foramina are patent bilaterally. L1-L2: The thecal sac has a normal diameter. No evidence of disc bulge or protrusion. The neural foramina are patent bilaterally. L2-L3: The thecal sac has a normal diameter. No evidence of disc bulge or protrusion. The neural foramina are patent bilaterally. L3-L4: The thecal sac has a normal diameter. No evidence of disc bulge or protrusion. The neural foramina are patent bilaterally. L4-L5: Very minimal disc bulge at L4-5. Disc hydration is maintained. Spinal canal and neural foramina are p atent L5-S1: The thecal sac has a normal diameter. No evidence of disc bulge or protrusion. The neural foramina are patent bilaterally. CONCLUSION: 1. Very minimal diffuse disc bulge at L4-5. 2. However, the spinal canal neural foramina are otherwise widely patent without nerve compromise. No fracture. Nathaniel Coughlin MD on May 27, 2017 at 18:20 Board Certified Radiologist. This report was verified electronically.
[2017-05-27] MEDS ORDERED: ROBA750T PO (18:43)
== END 2017-05-27 18:47 | disposition home or self-care (01) ==
LOC: PHEFT 14:43
DX: M51.26 Other intervertebral disc displacement, lumbar region (principal); F17.210 Nicotine dependence, cigarettes, uncomplicated
CPT/HCPCS: 72131; 72158; 80053; 85025; 85652; 99285; A9579

== ENCOUNTER 2017-12-31 14:20 | Emergency (ER) | payer BC ==
[~2017-12-31] VITALS: Ht 167.6 cm; Wt 62.0 kg
[~2017-12-31 14:20] MED LIST changes: +ROBA750T PO
[2017-12-31 14:31] VITALS: BP 118/68; PULSE 86; RESP 16; TEMP 98.3; O2SAT 99
[2017-12-31] MEDS ORDERED: CARB200T PO (15:12)
[2017-12-31] MEDS ORDERED: ROBA500T PO (15:37)
[2017-12-31] MEDS ORDERED: MEDR4PAK PO (15:37)
--- NOTE | 2017-12-31 15:42 | PD ---
HPI Chief Complaint: Back/ Neck Pain or Injury Time Seen by Provider: 15:21 Travel History International Travel<30 days: No Contact w/Intl Traveler<30days: No Traveled to known affect area: No History of Present Illness HPI 22-year-old female presents emergency department for evaluation of left-sided back pain that started Saturday. Patient states that she woke up and began having this pain. She describes this pain initially as shooting pain, sharp pain in the left lower paraspinous muscle area and has had some pain that shoots down to her toes. Says that her toes are beginning to feel numb but is intermittent. She also says that the inside of her left thigh has tingling. The pain is mild to moderate in severity. Pain is worse with movement. Pain actually decreases with standing. She denies fever, chills, loss of bowel or bladder function, saddle anesthesia, weakness. Says she has not used IV drugs in 3 years. She is a history of low back pain but this has not bothered her in several months. She denies excessive use of her back. Denies inciting events. PFSH Past Medical History Asthma: Yes Anxiety: Yes Depression: Yes Diminished Hearing: No Kidney Stones: Yes Psychiatric: Yes (ptsd) Respiratory: Yes (asthma) Renal Failure: Yes (states acute episode with kidney stones) ?: Not LMP: 12/30/2017 Past Surgical History Oral Surgery: Yes (dental work, sinus surgery) Other Surgery: Yes (SINUS) Social History Alcohol Use: No Tobacco Use: No (denies) Substance Use: No Allergies-Medications (Allergen,Severity, Reaction): Coded Allergies: penicillin G (Unverified Allergy, Severe, HIVES, THROAT SWELLING, 12/31/17) sulfamethoxazole (Unverified Adverse Reaction, Unknown, N/V, 12/31/17) trimethoprim (Unverified Adverse Reaction, Unknown, N/V, 12/31/17) Reported Meds & Prescriptions Reported Meds & Active Scripts Active Robaxin (Methocarbamol) 500 Mg Tab 500 Mg PO TID 5 Days Medrol Dosepak (Methylprednisolone) 4 Mg Dspk 4 Mg PO DIRECTED Per Pharmacist direction Reported Carbamazepine 200 Mg Tab 75 Mg PO BID Seroquel (Quetiapine Fumarate) 300 Mg Tab 200 Mg PO HS Review of Systems Except as stated in HPI: all other systems reviewed are Neg Physical Exam Narrative GENERAL: Well-nourished, well-developed patient. SKIN: Focused skin assessment warm/dry. HEAD: Normocephalic. EYES: No scleral icterus. No injection or drainage. NECK: Supple, trachea midline. No JVD or lymphadenopathy. CARDIOVASCULAR: Regular rate and rhythm without murmurs, gallops, or rubs. RESPIRATORY: Breath sounds equal bilaterally. No accessory muscle use. BACK: No CVA tenderness. No rash. No point tenderness on palpation of the spine. Tenderness palpation about the T12 through L2 region of the left paraspinous muscles, reproducing her pain Data Data Last Documented VS Vital Signs Date Time Temp Pulse Resp B/P (MAP) Pulse Ox O2 Delivery O2 Flow Rate FiO2 12/31/17 14:31 98.3 86 16 118/68 (85) 99 Orders Orders Ed Discharge Order (12/31/17 15:42) [facility] Medical Decision Making Medical Screen Exam Complete: Yes Emergency Medical Condition: Yes Differential Diagnosis Lumbago, sciatica, muscle spasms Narrative Course 22-year-old female with a history of low back pain presents emergency department with a 3-day history of left lumbar paraspinous muscular pain with sciatica type pain down her left leg. No red flag signs or symptoms. Vital signs are stable. Physical exam findings consistent with muscle spasms and lumbago with sciatica. Patient will be discharged with Robaxin and Medrol Dosepak. Advised to follow-up with primary care physician for further evaluation. Consider orthopedics for further evaluation as patient has had this back pain previously. Return for worsening or persistent symptoms. Diagnosis Primary Impression: Lumbago Qualified Codes: M54.42 - Lumbago with sciatica, left side Referrals: [facility] Orthopedist Primary Care Physician Additional Instructions: Perform light stretches of the lower back and legs, and alternate heat and ice packs. If you develop increased pain, weakness, fever, chills, or bowel or bladder issues, return to the ED for further treatment and evaluation. Follow up with your primary care physician in 2-3 days. Scripts Methocarbamol (Robaxin) 500 Mg Tab 500 MG PO TID for Muscle Spasm for 5 Days, TAB 0 Refills Prov: Giorgi Frederick MD 12/31/17 Methylprednisolone Dosepak (Medrol Dosepak) 4 Mg Dspk 4 MG PO DIRECTED, #1 DSPK 0 Refills Per Pharmacist direction Prov: Giorgi Frederick MD 12/31/17 Disposition: 01 DISCHARGE HOME Condition: Stable Savanna Mancuso Dec 31, 2017 15:42
== END 2017-12-31 15:52 | disposition home or self-care (01) ==
LOC: PHEFT 14:20
DX: M54.42 Lumbago with sciatica, left side (principal)
CPT/HCPCS: 99283

== ENCOUNTER 2018-06-26 08:33 | Observation (INO) ==
[2018-06-26] MEDS ORDERED: Sodium Chloride 0.9% 2 ML Flush PRN IV.FLUSH (09:28)
[2018-06-26] MEDS ORDERED: Metoprolol Tartrate 25 MG Tablet PO ONE (09:30)
[2018-06-26] MEDS ORDERED: Gabapentin 300 MG Capsule PO SCH (09:30)
[2018-06-26] MEDS ORDERED: Chlorhexidine Gluconate 2% 1 Pack (2 Cloths) TOPICAL ONE (09:30)
[2018-06-26] MEDS ORDERED: Sodium Chlor 0.9% Inj 500 ML IV.CONT ONE (09:30)
[2018-06-26] MEDS ORDERED: Clindamycin 900 mg/NS Premix 900 MG/50 ML PIGGYBACK IV.SIG ONE (09:30)
[2018-06-26] MEDS ORDERED: Dexmedetomidine Inj 200 MCG/2 ML Vial ONE (09:32)
[2018-06-26] MEDS ORDERED: Lidocaine 1% Inj 50 ML Vial ONE (09:32)
[2018-06-26] MEDS ORDERED: Ropivacaine 0.5% PF Inj 20 ML Vial ONE (09:33)
[2018-06-26] MEDS ORDERED: Sodium Chlor 0.9% Inj 0 ML ONE (09:33)
[2018-06-26] MEDS ORDERED: GENTAMICIN IV.SIG SCH (10:00)
[2018-06-26] MEDS ORDERED: SODIUM CHLOR 0.9% IV.SIG SCH (10:00)
[2018-06-26] MEDS ORDERED: Sodium Chlor 0.9% Inj 250 ML IV.CONT ONE (10:22)
[2018-06-26] MEDS ORDERED: Neostigmine Inj 5 MG/5 ML Syringe IV.PUSH ONE (10:22)
[2018-06-26] MEDS ORDERED: Glycopyrrolate Inj 1 MG/5 ML Syringe IV.PUSH ONE (10:22)
[2018-06-26] MEDS ORDERED: Ketorolac Inj 30 MG/ML (IVP) Vial IV.PUSH ONE ×2 (10:22→15:00)
[2018-06-26] MEDS ORDERED: Lidocaine PF 1% Inj 5 ML Syringe OTHER ONE (10:22)
--- NOTE | 2018-06-26 10:24 | P.OP ---
Surgeon: Krishan Acuna MD Operation and Findings: Preoperative diagnosis: 1. Abnormal uterine bleeding 2. Dysmenorrhea 3. Unicornuate uterus, absent right Postop diagnosis 1. Same as above with addition of below and status post below procedure. 2. Left ureterocele Procedure 1. Total laparoscopic hysterectomy, left salpingectomy, diagnostic cystoscopy. 2. Unroofing of the left ureterocele and stent placement by Dr. Kincaid Surgeon Dr. Krishan Acuna Resistance Machine Welder Setter: Dr. Stephanie Venegas was present and scrubbed throughout the case. [facility] OR staff assisted as well. Intraoperative consultation: Dr. Kincaid urology, see his documentation for details. Findings: 1. Normal external female genitalia vagina and cervix. 2. 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 3. Abdomen and pelvis free of adhesions, normal liver and gallbladder. 4. Left ureterocele, otherwise normal diagnostic cystoscopy, bilateral efflux of ureters appreciated. Anesthesia: General endotracheal. Specimen: Uterus, cervix, left fallopian tube to pathology together, routine. Estimated blood loss: 20 cc Fluid replacement: 2500 cc lactated Ringer's Urine output: 600 cc clear urine DVT prophylaxis: Sequential compression devices throughout the case Antibiotics: 900 mg IV clindamycin and gentamicin dosed at 5 mg/kg via pharmacy. Intraoperative medications: 10 mg IV Lasix Counts: correct x2 Time out done: yes Disposition: Stable to PACU, plan will be to leave the stent in for 6 weeks and follow up with Dr. Kincaid for removal. Indications: Patient is a 23-year-old G0 female who was seen in outpatient setting for abnormal uterine bleeding she had a normal workup, it was incidentally discovered she had a unicornuate uterus, she has failed medical management, and elected for the above procedure. Please see H&P and consents for further details. Description of procedure: The patient was taken to the operating room and placed under general anesthesia she was positioned in lithotomy position with Teddy stirrups with both arms tucked. The abdomen and vagina were prepped and draped in sterile fashion. A Gutierrez was inserted. Uterus was sounded to 7 cm, a medium V care manipulator was placed with a suture applied to the cervix for traction. Attention was turned to the abdomen. A total of 10 cc of 1% lidocaine with epinephrine was used for each port site. A 5 mm umbilical incision was made and with direct optical view technique the abdomen was entered and insufflated with CO2 gas, the patient was placed in Trendelenburg. Two 5 mm left lower quadrant and one right lower quadrant 5 mm trocars were inserted with direct intra abdominal visualization. A survey was performed with the above findings. A left salpingectomy was performed using the Enseal and the specimens were removed from the abdomen. The left round ligament was transected and the anterior broad ligament opened and a bladder flap was developed with the Enseal and the same was done on the contralateral side. The posterior broad ligament was opened and the uterine arteries were skeletonized. The uterine arteries were clamped desiccated and transected with the Enseal bilaterally. Using monopolar energy a colpotomy was made The uterus was removed vaginally. The vaginal cuff was closed with running 2-0 unidirectional strata fix suture incorporating the uterosacrals for support. The abdomen was irrigated and the surgical sites were found to be hemostatic. A cystoscopy was performed with a 30 laparoscope using normal saline. No damage to the bladder was appreciated and bilateral efflux was noted. However there was a bulge just underneath the left ureteral orifice, I reinsufflated the abdomen and cut / removed the suture that was on the left aspect of the cuff and on repeat cystoscopy the bulge was still present, I consulted Dr. Codi wyman once he arrived he arrived and unroofed the left ureterocele and placed a stent. He also passed a guidewire through both ureteral orifices and confirmed patency. The Gutierrez was left in place per his recommendations. The abdomen was reinsufflated and using 2 oh unidirectional strata fix suture I reinforced the cuff from the left to the midline. I then desufflated the abdomen and removed trocars. The skin was closed with 4-0 Monocryl and skin glue applied overlying. The patient was awoken from anesthesia and transferred to PACU.
[2018-06-26] MEDS ORDERED: Lidocaine 1%/Epinephrine 1:100,000 Inj 50 ML Vial ONE (10:33)
--- NOTE | 2018-06-26 13:51 | P.OP ---
- Preoperative Diagnosis (1) Ureterocele, acquired - Postoperative Diagnosis (1) Ureterocele, acquired Date of procedure: 06/26/18 Procedure: Cystoscopy, placement of ureteral wire bilaterally, endoscopic unroofing of left ureterocele and placement of a left ureteral stent Implants: Left ureteral stent Anesthesia: GETA Surgeon: Shayan Kincaid MD Estimated blood loss (mL): 0 Pathology: none sent Operation and Findings: Indication for urologic procedures: Consulted intraoperatively to assess for patency of both ureters in this patient who just underwent a laparoscopic hysterectomy. Urologic procedures in detail: With the patient already on the OR table and in the dorsolithotomy position, high proceeded with cystoscopic evaluation utilizing the rigid cystoscope with the 20 [place] sheath and 30 degree lens. There appeared to be drainage from the right ureteral orifice and on the left a moderately sized ureterocele was noted with a pinpoint opening. Remainder of cystoscopic evaluation failed to demonstrate any other abnormalities. I then placed a sensor 0.035 wire up the patient's right ureter without difficulty. The wire was then withdrawn and in similar fashion was placed on the contralateral side. I then proceeded to pass an open-ended catheter over the wire on the left side and the wire was withdrawn. The cystoscope was removed and reintroduced along the open-ended ureteral catheter and I proceeded to perform unroofing of the left ureterocele with endoscopic scissors. The cut edges were then cauterized with the [place] electrode. The cystoscope was then backloaded and the wire was reintroduced and advanced up into the left kidney through the open-ended catheter. The catheter was then removed over the wire and a [place] 6 [place] 24 cm double-J stent was carefully placed. Once the stent was in proper position the trailing string was removed. The cystoscope was withdrawn and the Gutierrez catheter was replaced. The patient will need to follow-up with me in the office in approximate 6 weeks time for left stent removal. This completes the urologic surgery portion of combined procedures on this patient.
[2018-06-26] MEDS ORDERED: Acetaminophen 325 MG Tablet PO PRN (14:06)
[2018-06-26] MEDS ORDERED: fentaNYL Citrate Inj 100 MCG/2 ML Ampul ONE (14:36)
[2018-06-26] MEDS ORDERED: *Meperidine Inj 25 MG/ML Vial PERIprocedural Use ONLY ONE (14:59)
[2018-06-26] MEDS ORDERED: *morphine SULFATE 10 MG/ML PERIprocedure ONLY ONE (15:06)
[2018-06-26 17:19] VITALS: BP 105/57; PULSE 74; RESP 18; TEMP 97.8; O2SAT 97
[2018-06-26] MEDS ORDERED: Gabapentin 100 MG Capsule PO SCH (18:00)
--- NOTE | 2018-06-26 18:24 | P.OBGPN ---
23 yo s/p TLH, RS, cysto, unroofing of ureterocele and stent placement pt doing well, ambulating, no voids, tolerating diet, no n/v, no bleeding, pain controlled w/o any IV or PO meds. Plan: d/c when can void normally, discussed post op precautions and expectations and follow up
--- NOTE | 2018-06-26 18:26 | P.DS ---
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 Meeting post op milestones on POD #0 and d/c home. DS: Summary Hospital Course: see brief history - Time Spent with Patient Total time spent providing and/or coordinating discharge services: Less than 30 minutes - Quality: VTE Deep Vein Thrombosis/Pulmonary Embolism Present on Admission: No Exam Vital signs: Vital Signs 06/26/18 09:21 06/26/18 14:20 06/26/18 14:30 Temperature 98.5 F 96.7 F L Pulse Rate 79 66 Respiratory Rate 20 16 15 Blood Pressure 101/63 99/55 L 104/56 L Pulse Oximetry 100 100 97 06/26/18 14:45 06/26/18 15:00 06/26/18 15:15 Temperature 96.9 F L Pulse Rate 69 68 67 Respiratory Rate 15 15 16 Blood Pressure 98/54 L 100/59 L 97/55 L Pulse Oximetry 96 97 98 06/26/18 15:30 06/26/18 15:45 06/26/18 16:00 Temperature 97.0 F L 97.2 F L Pulse Rate 65 Respiratory Rate 16 16 16 Blood Pressure 99/58 L 97/55 L 100/54 L Pulse Oximetry 98 97 98 06/26/18 16:15 06/26/18 16:30 06/26/18 16:45 Temperature 97.6 F 98.3 F Pulse Rate 75 Respiratory Rate 16 16 16 Blood Pressure 101/54 L 103/58 L 100/53 L Pulse Oximetry 98 98 95 06/26/18 17:18 Temperature 97.8 F Pulse Rate 74 Respiratory Rate 18 Blood Pressure 105/57 L Pulse Oximetry 97 Intake & Output 06/25/18 06/26/18 06/26/18 18:59 06:59 18:59 Intake Total 2500 / 2500 Output Total 870 / 870 Balance 1630 / 1630 Weight 56.4 kg Intake: Anesthesia Amount 2500 / 2500 Output: Estimated Blood Loss 20 / 20 Urine Amount (Catheter) 850 / 850 Indwelling Urethral Catheter 850 / 850 Other: Weight On Admission 56.4 kg Results Procedures completed during hospitalization: TLH, RS, cysto, unroofing of incidentally found left ureterocele and stent placement Pending studies at discharge: Pending at discharge 06/26/18 Surgical [PTH] Routine Labs on day of discharge: Labs from last 24 hours 06/26/18 09:20 Blood Type A Positive Blood Type Recheck Required Antibody Screen Negative Discharge Plan - Discharge Disposition Patient Disposition: 01 Discharge Home - Discharge Condition Condition: Good - Discharge Order Discharge Orders: Discharge Order (Routine); Ordered 06/26/18 Ordered By: Krishan Acuna - Discharge Details Anticipated Discharge Date: 06/26/18 - Physicians Team Primary Care Provider: Primary Care Frieda Byrd Attending Provider: Krishan Acuna - Rxs /Orders / Referrals /Forms Prescriptions: Continue carbamazepine 100 mg Capsule, Er Multiphase 12 Hr 75 mg PO BID ketorolac 10 mg Tablet 10 mg PO Q6H PRN (Reason: Pain) Qty: 30 RF: 0 quetiapine [Seroquel] 100 mg Tablet 100 mg PO BID Discontinued ketorolac 10 mg Tablet 10 mg PO Q6H Qty: 30 RF: 0 Referrals: Primary Frieda Chadwick [Primary Care Provider] - See Instructions - Discharge Instructions Patient Printed Instructions: Hysterectomy (DC) Additional Instructions: if having pain take 800mg of Ibuprofen in addition to your scheduled gabapentin
[2018-06-26] MEDS ORDERED: CARBAMAZEPINE PO SCH (21:00)
[2018-06-26] MEDS ORDERED: Ketorolac Inj 30 MG/ML (IVP) Vial IV.PUSH SCH (21:00)
[2018-06-26] MEDS ORDERED: Sodium Chloride 0.9% 2 ML Flush BID IV.FLUSH SCH (21:00)
[2018-06-26] MEDS ORDERED: QUEtiapine 100 MG Tablet PO SCH (21:00)
[2018-06-27] MEDS ORDERED: Measles/Mumps/Rubella Vaccine Inj 0.5 ML Vial SQ ONE (16:00)
[2018-06-27] MEDS ORDERED: Diphtheria/Tetanus/Pertussis Vaccine Inj 0.5 ML Syringe IM ONE (16:00)
== END 2018-06-26 19:30 | disposition home or self-care (01) ==
LOC: N06 08:33 → HSDC 08:33
PROVIDERS: ADMIT Obstetrics & Gynecology; ATTEND Obstetrics & Gynecology